=== PATIENT | female | born 1985 | race Caucasian/White ===

== ENCOUNTER 2025-01-30 13:52 | Emergency (ER) | payer MEDICAID, SELFPAY ==
[2025-01-30 14:12] VITALS: BP 115/77; PULSE 89; RESP 18; TEMP 36.7; O2SAT 98; BMI 34.6
--- NOTE | 2025-01-30 14:55 | CRLHL7_ITS ---
For Patients: As a result of the Century Cures Act, medical imaging exams and procedure reports are released immediately into your electronic medical record. You may view this report before your referring provider. If you have questions, please contact your health care provider. INDICATION: Bilateral flank and back pain TECHNIQUE: Axial images were obtained from the diaphragm to the pubic symphysis. Reformats were obtained in the coronal and sagittal plane. IV Contrast: 90 cc Isovue 370 Oral Contrast: None COMPARISON: None. FINDINGS: Lower chest: Unremarkable. Liver: Unremarkable. Normal in size and attenuation. No masses. Gallbladder and bile ducts: Contracted gallbladder. Normal diameter common duct. Spleen: Unremarkable. Normal in size without mass. Pancreas: Unremarkable. No mass or inflammation. Adrenal glands: Unremarkable. No nodules. Kidneys: Symmetric renal enhancement. No hydronephrosis. Vasculature: Unremarkable. GI tract: Mild asymmetric gastric wall thickening at the antrum (series 2, image 57; series 4, image 50). Possible subtle luminal wall irregularity (series 2, image 58; series 4, image 46). Small bowel decompressed. Normal appendix. Colon normal in caliber. Pelvis: Unremarkable. Bones: Unremarkable for age. IMPRESSION: 1. Mild asymmetric wall thickening of the antrum of the stomach, mild luminal wall irregularity questioned, suspected peptic ulcer disease. Differential includes gastritis. 2. Remainder of the abdomen and pelvis CT is within normal limits. Please note that all CT scans at this facility use dose modulation, iterative reconstruction, and/or weight-based dosing when appropriate to reduce radiation dose to as low as reasonably achievable. Dictated by Nick Kunz MD @ 01/30/2025 3:40:44 PM (Electronically Signed)
--- NOTE | 2025-01-30 14:57 | ED.GENADULT ---
HPI - General Adult General Chief complaint: Flank Pain Stated complaint: Kidney pain Time Seen by Provider: 01/30/25 14:09 History of Present Illness HPI narrative: Patient is a 39-year-old woman who presents with bilateral back and flank pain worse on the right. She has been having some intermittent pain in the past but her pain has been progressive over the last several days and now is causing lightheadedness and nausea. She has no dysuria. She does have chronic pelvic inflammatory disease as well as endometriosis. Patient is status post a tubal ligation 15 years ago after having 3 healthy children. She takes no home medications. She states that the pain is worse with activity when she lays flat. She has tried [id number] remedies with no improvement. Pain is 6/10 worsening to 8 with activity or lying flat. No recent trauma. Related Data Home Medications ?Medication ?Instructions ?Recorded ?Confirmed No Known Home Medications 01/30/25 01/30/25 Allergies Allergy/AdvReac Type Severity Reaction Status Date / Time No Known Drug Allergies Allergy Verified 01/30/25 15:20 Review of Systems Status of ROS: Reports: 10 or more systems reviewed and unremarkable except as noted in History and below [facility] Social History service: No Exam Narrative: Exam Narrative: EXAM GENERAL: Patient appears comfortable and well. EYES: No scleral icterus. LYMPH: No supraclavicular or cervical lymphadenopathy. SKIN: Visible skin seen during exam normal or with benign process only. EXT: No dependent lower extremity pedal edema. HEART: Regular rate and rhythm with no murmurs, rubs, or gallops. LUNGS: Clear to auscultation bilaterally with no crackles or wheezes. ABD: Soft, non tender, non distended. PSYCH: Good eye contact, speech is not pressured. Const: Vital Signs, click to edit/add: Vital Signs - 24 hr 01/30/25 14:12 Temperature 98.1 F Pulse Rate [Right Pulse Oximeter] 89 Respiratory Rate 18 Blood Pressure [Ri ght Upper Arm] 115/77 Pulse Oximetry 98 Oxygen Delivery Me thod Room Air Course Course ED Course: Patient seen examined. UA CBC basic metabolic panel CT abdomen pelvis pending. 30 mg of IA be Toradol given. Vital Signs Vital signs: Initial Vital Signs Temperature 98.1 F 03/14/25 14:12 Temperature Source Temporal Artery Scan 01/30/25 14:12 Pulse Rate 89 01/30/25 14:12 Pulse Rhythm Regular 01/30/25 14:12 Pulse Strength 3+ Normal 01/30/25 14:12 Respiratory Rate 18 01/30/25 14:12 Blood Pressure 115/77 01/30/25 14:12 Blood Pressure Mean 89 01/30/25 14:12 Blood Pressure Position Sitting 01/30/25 14:12 Pulse Oximetry 98 01/30/25 14:12 Oxygen Delivery Method Room Air 01/30/25 14:12 Vital Signs Temperature 98.1 F 01/30/25 14:12 Pulse Rate 89 01/30/25 14:12 Respiratory Rate 18 01/30/25 14:12 Blood Pressure 115/77 01/30/25 14:12 Pulse Oximetry 98 01/30/25 14:12 Oxygen Delivery Method Room Air 01/30/25 14:12 Temperature 98.1 F 01/30/25 14:12 Pulse Rate 89 01/30/25 14:12 Respiratory Rate 18 01/30/25 14:12 Blood Pressure 115/77 01/30/25 14:12 Pulse Oximetry 98 01/30/25 14:12 Oxygen Delivery Method Room Air 01/30/25 14:12 Medical Decision Making MDM Narrative Medical decision making narrative: Patient is a 39-year-old woman comes in today with crampy lower abdominal and back pain. Workup includes CT of the abdomen pelvis which showed questionable gastritis. She has an abnormal UA consistent with infection the remainder of her workup is unremarkable. This time will treated with plenty of rest plenty fluids Bactrim for 5 days primary care follow-up next week. Urine sent for culture. Lab Data Labs: Lab Results 01/30/25 01/30/25 Range/Units 14:55 15:13 WBC 7.37 (4.50-11.00) K/uL RBC 4.55 (4.00-5.20) m/uL Hgb 13.1 (12.0-16.0) gm/dL Hct 38.8 (33.0-51.0) % MCV 85 (80-100) fL MCH 29 (26-34) pg MCHC 34 (32-36) gm/dL RDW Coeff of Gail 12.2 (11.5-15.5) % Plt Count 310 (140-440) K/uL Neut % (Auto) 65.1 (42.0-72.0) % Lymph % (Auto) 24.4 (20-44) % [facility] % (Auto) 5.6 (0.0-11.0) % Eos % (Auto) 3.3 (0.0-7.0) % Baso % (Auto) 0.5 (0.0-3.0) % Neut # (Auto) 4.80 (1.7-7.0) K/uL Lymph # (Auto) 1.80 (0.90-2.90) K/uL [facility] # (Auto) 0.40 (0.00-0.90) K/UL Eos # (Auto) 0.24 (0.00-0.50) K/uL Baso # (Auto) 0.04 (0.00-0.30) K/uL Abs Immat Gran (auto) 0.08 (0.00-0.30) K/uL Imm/Tot Granulo (auto) 1.1 % Sodium 138 (135-149) mmol/L Potassium 4.1 (3.6-5.1) mmol/L Chloride 101 (96-114) mmol/L Carbon Dioxide 27 (20-32) mmol/L Anion Gap 10 (7-15) mEq/L BUN 13 (5-24) mg/dL Creatinine 0.8 (0.5-1.5) mg/dL Estimated Creat Clear 71.24 Estimated GFR 96 ml/min Glucose 103 (60-115) mg/dL Calcium 8.9 (8.4-10.6) mg/dL Total Bilirubin 0.4 (0.1-1.5) mg/dL AST 24 (12-35) U/L ALT 29 (4-35) U/L Alkaline Phosphatase 56 (40-150) U/L Total Protein 7.4 (6.0-8.3) g/dL Albumin 4.5 (3.3-5.0) g/dL Urine Color Yellow (Yellow) Urine Appearance Clear (Clear) Urine pH 7.0 (5.0-8.5) Ur Specific [place] 1.015 (1.000-1.030) Urine Protein Negative (Negative) Urine Glucose (UA) Negative (Negative) Urine Ketones Negative (Negative) Urine Blood Trace-intact A (Negative) Urine Nitrite Negative (Negative) Urine Bilirubin Negative (Negative) Urine Urobilinogen 0.2 (0.2-1.0) Ur Leukocyte Esterase 2+ A (Negative) Urine RBC 5-10 A (0-2) Urine WBC 10-25 A (0-5) Ur Squamous Epith Cells Moderate A (None-Few) Urine Bacteria Moderate A (None) Discharge Plan Discharge Clinical Impression: Urinary tract infection Patient Disposition: Home, Self-Care Condition: Stable Instructions: Urinary Tract Infection in Women (ED) Additional Instructions: Bactrim as directed Rest Fluids Follow-up as discussed next week with your doctor. Activity Level: No Restrictions Discharge Diet: Regular Prescriptions: No Action No Known Home Medications Follow Up/Referrals: Diana Rodgers DO [Primary Care Provider] - Stand Alone Forms: [employer] Info Instructions
[2025-01-30 15:07] LABS: Appearance Urine Clear (Clear); Bilirubin Urine Negative (Negative); Blood Urine Trace-intact (Negative); Color Urine Yellow (Yellow); Glucose Urine Negative (Negative); Ketones Urine Negative (Negative); Leukocyte Esterase Urine 2+ (Negative); Nitrite Urine Negative (Negative); Protein Urine Negative (Negative); Specific Gravity Urine 1.015 (1.000-1.030); Urobilinogen Urine 0.2 (0.2-1.0)
[2025-01-30 15:16] LABS: Bacteria Urine Moderate; Squamous Epithelial Cell Urine Moderate (None-Few)
[2025-01-30 15:25] LABS: Basophils Absolute Auto 0.04 K/uL (0.00-0.30); Basophils Percent Auto 0.5 % (0.0-3.0); Eosinophils Absolute Auto 0.24 K/uL (0.00-0.50); Eosinophils Percent Auto 3.3 % (0.0-7.0); Hematocrit 38.8 % (33.0-51.0); Hemoglobin* 13.1 gm/dL (12.0-16.0); Immature Granulocytes Abs Auto 0.08 K/uL (0.00-0.30); Immature Granulocytes Pct Auto 1.1 %; Lymphocytes Percent Auto 24.4 % (20-44); Mean Corpuscular HGB Conc 34 gm/dL (32-36); Mean Corpuscular Hemoglobin 29 pg (26-34); Mean Corpuscular Volume 85 fL (80-100); Monocytes Percent Auto 5.6 % (0.0-11.0); Neutrophils Percent Auto 65.1 % (42.0-72.0); Platelet Count* 310 K/uL (140-440); RDW Coefficient of Variation % 12.2 % (11.5-15.5); Red Blood Count 4.55 m/uL (4.00-5.20); White Blood Count* 7.37 K/uL (4.50-11.00)
[2025-01-30 15:32] LABS: Slide Review Reflex No
[2025-01-30 15:40] LABS: Albumin* 4.5 g/dL (3.3-5.0); Chloride* 101 mmol/L (96-114); Sodium* 138 mmol/L (135-149)
[2025-01-30 15:41] LABS: Potassium* 4.1 mmol/L (3.6-5.1)
[2025-01-30 15:43] LABS: Alkaline Phosphatase* 56 U/L (40-150); Anion Gap 10 mEq/L (7-15); Aspartate Amino Transferase* 24 U/L (12-35); Bilirubin Total* 0.4 mg/dL (0.1-1.5); Blood Urea Nitrogen* 13 mg/dL (5-24); Carbon Dioxide* 27 mmol/L (20-32); Creatinine* 0.8 mg/dL (0.5-1.5); Est. Creatinine Clearance* 71.24; Estimated Glomerular Filt Rate 96 ml/min; Total Protein* 7.4 g/dL (6.0-8.3)
[2025-01-30 15:44] LABS: Alanine Aminotransferase* 29 U/L (4-35); Calcium* 8.9 mg/dL (8.4-10.6); Glucose* 103 mg/dL (60-115)
== END 2025-01-30 16:05 | disposition home or self-care (01) ==
PROVIDERS: Emergency Provider Internal Medicine; PCP Family Medicine
DX: N39.0 Urinary tract infection, site not specified (principal)
CPT/HCPCS: 36415; 74177; 80053; 81001; 81003; 85025; 87086; 96374; 99283; 99284; 99285; Q9967

== ENCOUNTER 2025-06-09 10:03 | Emergency (ER) | payer BC, SELFPAY ==
--- OUTSIDE RECORDS SUMMARY | 2025-06-09 10:08 | XMS_ITS | Clinical Summary ---
Author Organization [facility] Address [address] [place] [address] Care Team Providers Care Mortgage Protection Specialist Name Role Phone Diana Rodgers DO Primary Care Provider [phone] Allergies Active Allergy Reactions Criticality Noted Date Comments Penicillin Hives 02/04/2025 Medications cholecalciferol 50,000 unit capsuleIndicati ons:Vitamin D deficiency Take 1 Capsule (50,000 units) by mouth once weekly. 6 Capsule 02/06/2025 Active esomeprazole delayed release capsule 20 mg Take 20 mg by mouth once daily before a meal. 02/17/2025 Active DULoxetine 30 mg Delayed-release capsuleIndicati ons:Chronic pain syndrome Take 1 Capsule (30 mg) by mouth once daily. 30 Capsule 2 04/06/2025 Active Active Problems Problem Noted Date Diagnosed Date Human papillomavirus (HPV) t ype 18 DNA detected in cervical specimen 03/04/2025 Overview (03/04/2025): 01/2025 ASCUS/HPV 18 +, HPV 16 negative, other HPV negative Plan: colposcopy Encounters Date Type Department Care Team Description 06/09/2025 Nurse Triage [facility] [address] [facility] [address] Diana Rodgers, Abdominal Pain 06/04/2025 9:54 AM CDT - 06/04/2025 11:59 PM CDT Hospital Encounter [address] [place] [address] Radha Sultana MD Wegner, Angela V, BLAST FURNACE HELPER 06/04/2025 Travel 06/01/2025 8:30 AM CDT Procedure Only [facility] [address] [place] [address] Cameron Camp L Ac Acupuncture 06/01/2025 Travel 05/18/2025 10:54 AM CDT - 05/18/2025 11:59 PM CDT Hospital Encounter [address] [address] Radha Sultana MD Noble, Isaac J, PT 05/18/2025 Travel 05/12/2025 11:21 AM CDT - 05/12/2025 11:59 PM CDT Hospital Encounter [address] [address] Radha Sultana MD Noble, Isaac J, PT Chronic pain syndrome; Polyneuropathy; Acute midline low back pain with left-sided sciatica; 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; Fibromyalgia 05/12/2025 Travel 05/06/2025 10:30 AM CDT Procedure Only [facility] [address] [place] [address] [place] L Ac Acupuncture 05/06/2025 Travel 04/21/2025 11:00 AM CDT Procedure Only [facility] [address] [place] [address] Cameron [place] L Ac Acupuncture 04/20/2025 11:30 AM CDT Telemedicine [facility] [address] [place] [address] Radha Sultana MD Medication Management (Joint pain and muscle pain - GI upset/3 day Migraine ) 04/20/2025 Travel 04/15/2025 Telephone [facility] [address] [place] [address] Radha Sultana MD Medication Management 04/06/2025 4:15 PM CDT Ancillary Procedure [facility] [place] [address] 04/06/2025 4:00 PM CDT Ancillary Procedure [facility] [place] [address] 04/06/2025 3:05 PM CDT Office Visit [address] [address] Radha Sultana MD Follow Up 04/06/2025 Travel 03/30/2025 10:30 AM CDT Ancillary Procedure [address] [place] [address] 03/30/2025 9:50 AM CDT Office Visit [address] [address] Radha Sultana MD Foot Pain/problem (Bilateral leg and foot pain - skin feels tight/full/Worsenin g with sitting. /Feet feel heavy and full. /Present for 2 weeks. ); Elbow Pain/problem (Right elbow pain ) 03/30/2025 Travel 03/22/[address] [address] Diana Rodgers DO Questions (Procedure Concerns) 03/19/2025 10:25 AM CDT Procedure Only [address] [address] Diana Rodgers DO Procedure (Colposcopy) 03/18/2025 Travel 03/10/2025 Travel from Last 3 Months Family History Medical History Relation Name Comments Unknown Father Hypertension Mother Relation Name Status Comments Father Mother Social History Tobacco Use Types Packs/Day Years Used Date Smoking Tobacco: Former Cigarettes Smokeless Tobacco: Never Tobacco Cessation:Counseling Given: Not Answered Alcohol Use Standard Drinks/Week Comments Yes 0 (1 standard drink = 0.6 oz pur e alcohol) once monthly PHQ-2 Answer Date Recorded PHQ-2 TOTAL SCORE 0 02/04/2025 Social Connections Answer Date Recorded Do you often feel lonely or isolated from those around you? 0 02/04/2025 Financial Resource Strain Answer Date R ecorded Difficulty of Paying Living Expenses 3 02/04/2025 Difficulty of Paying Living Expenses Not on file 02/04/2025 Food Insecurity Answer Date Recorded Do you worry your food will run out before you are able to buy more? 1 02/04/2025 Transportation Needs Answer Date Record ed Does lack of transportation keep you from medica l appointments? 1 02/04/2025 Does lack of transportation keep you from work, meetings or getting things that you need? 1 02/04/2025 Housing Stability Answer Date Recorded What is your housing situation today? 1 02/04/2025 Utilities Answer Date Recorded Do you have trouble paying f or utilities (for example, heat, electricity, water, phone)? 1 02/04/2025 Comments No Sex and Gender Information Value Date Recorded Sex Assigned at Not on file Legal Sex Female 9:29 AM CDT Gender Identity Not on file Sexual Orientation Not on file Obstetrics History Para Term AB IAB SAB Ectopic Multiple Livin g Live Births 9 6 6 3 Date Outcome GA Total Labor Labor/2nd/3rd Weight Sex Type Anes PTL Zoya A1 A5 Name Clin SAB SAB SAB SAB SAB SAB Last Filed Vital Signs Vital Sign Reading Time Taken Comments Blood Pressure 121/74 04/06/2025 3:06 PM CDT Pulse 73 04/06/2025 3:06 PM CDT Temperature - - Respiratory Rate - - Oxygen Saturation 99% 04/06/2025 3:06 PM CDT Inhaled Oxygen Concentration - - Weight 86.8 kg (191 lb 6.4 oz) 03/19/2025 10:49 AM CDT Height 160.2 cm (5' 3.07) 02/13/2025 1:54 PM CD T Body Mass Index 33.83 02/13/2025 1:54 PM CDT Plan of Treatment Upcoming Encounters Date Type Department Care Team (Late st Contact Info) Description 06/10/2025 10:15 AM CDT Appointment [facility] [address] [place] [address] Mack Juarez, PT [address] [place] [address] 06/11/2025 10:00 AM CDT Procedure Only [facility] [address] [facility], [place] [address] [place] [address] 06/18/2025 11:30 AM CDT Procedure Only [facility] [address] [facility], [place] [address] [place], Robin Ac [address] [facility] [address] 06/25/2025 11:00 AM CDT Procedure Only [facility] [address] [place] [facility] [place] [address] [place] L Ac [address] [facility] [address] 07/09/2025 11:30 AM CDT Procedure Only [facility] [address] [place] [facility] [place] [address] Cameron Camp L Ac [address] [place] [address] 07/16/2025 11:30 AM CDT Procedure Only [facility] [address] [place] [facility] [address] Cameron Camp L Ac [address] [place] [address] 07/23/2025 10:30 AM CDT Procedure Only [facility] [address] [place] [address] Cameron Camp L Ac [address] [place] [address] 07/30/2025 11:30 AM CDT Procedure Only [facility] [address] [place] [address] [place] L Ac [address] [place] [address] 08/06/2025 11:30 AM CDT Procedure Only [facility] [address] [place] [address] [place] [facility] [address] 08/13/2025 11:30 AM CDT Procedure Only [facility] [address] [place] [facility] [place] [address] Cameron Camp L Ac [address] [place] [address] 08/20/2025 10:00 AM CDT Telemedicine [facility] [address] [place] [phone] Shell Bingham, VOTING MACHINE MECHANIC [address] [place], [place] [phone] 09/22/2025 10:40 AM 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 OPERATOR Telemedicine [facility] [address] [place] [phone] Yony Ramírez MD [address] [place] [address] Health Maintenance Due Date Last Done Comments Tetanus booster 1996 HIV for age 15-65 2000 Hepatitis C screening for age 18-79 2003 Hepatitis B series for 19+ (1 of 3 - 19+ 3-dose series) 2004 COVID-19 vaccine series ( season) 2024 Influenza Vaccine (#1) 2025 Depression screening for age 12+ 02/04/2026 02/04/2025 BMI (ht and wt on same day) for age 18+ 02/13/2026 02/13/2025, 02/04/2025 Pap test for age 21-65 03/19/2026 (Verified in Care Everywhere or Patient Record), 02/13/2025, 02/13/2025 Pneumococcal series for age 6-49 Aged Out No longer eligible based on patient's age to complete this topic Procedures Procedure Name Priority Date/Time Associated Diagnosis Comments ACUPUNCTURE PLAN OF CARE Routine 06/01/2025 8:29 AM CDT Chronic pain syndrome Polyneuropathy Acute midline low back pain with left-sided sciatica 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 Fibromyalgia ACUPUNCTURE PLAN OF CARE Routine 05/06/2025 10:29 AM CDT Chronic pain syndrome Polyneuropathy Acute midline low back pain with left-sided sciatica 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 Fibromyalgia XR SPINE THORACIC 3 VIEWS Routine 04/06/2025 4:13 PM CDT Polyneuropathy XR SPINE CERVICAL 3 VIEWS Routine 04/06/2025 4:12 PM CDT Polyneuropathy XR SPINE LUMBAR 2 VIEWS Routine 03/30/2025 11:11 AM CDT Polyneuropathy Acute midline low back pain with left-sided sciatica VITAMIN B12 Routine 03/30/2025 10:39 AM CDT Polyneuropathy C-REACTIVE PROTEIN Routine 03/30/2025 10 :39 AM CDT Polyneuropathy SEDIMENTATION RATE Routine 03/30/2025 10 :39 AM CDT Polyneuropathy VITAMIN D 25 (DEFICIENCY) Routine 03/30/2025 10:39 AM CDT Polyneuropathy Vitamin D deficiency CBC WITH AUTO DIFFERENTIAL Routine 03/30/2025 10:39 AM CDT Polyneuropathy PROTEIN/CREAT RATIO,URINE Routine 03/30/2025 10:38 AM CDT Polyneuropathy PROTEIN ELP SERUM W REFLEX Routine 03/30/2025 10:38 AM CDT Polyneuropathy PATH TISSUE EXAM Routine 03/19/2025 11:2 0 AM CDT Atypical squamous cell changes of undetermined significance (ASCUS) on cervical cytology with positive high risk human papilloma virus (HPV) Human papillomavirus (HPV) type 18 DNA detected in cervical specimen URINE POCT Routine 03/19/2025 10:57 AM CDT Pre-procedure lab exam HPV HIGH RISK Routine 02/13/2025 2:43 PM CDT Cervical cancer screening from Last 3 Months or Most Recently Relevant to Health Maintenance Results * XR SPINE THORACIC 3 VIEWS (04/06/2025 4:13 PM CDT) Anatomical Region Laterality Modality Spine, THORACIC SPINE Computed R adiography 04/07/2025 12:1 0 PM CDT Impressions 04/07/2025 12:10 PM CDT Negative thoracic spine. Dictated by Franklyn Holliday MD @ 04/07/2025 12:10:08 PM (Electronically Signed) Narrative 04/07/2025 12:10 PM CDT For Patients: As a result of the Cures Act, medical imaging exams and procedure reports are released immediately into your electronic medical record. You may view this report before your referring provider. If you have questions, please contact your health care provider. INDICATION: Polyneuropathy TECHNIQUE: 3-view thoracic spine. COMPARISON: none FINDINGS: The thoracic vertebrae are anatomically aligned. The disc spaces are of normal height. There is no evidence of a fracture or intrinsic bone lesion. The posterior ribs and paraspinal soft tissues appear normal. Procedure Note Franklyn Holliday MD - 04/07/2025 For Patients: As a result of the Cures Act, medical imagingexams and procedure reports are released immediately into your electronicmedical record. You may view this report before your referring provider.If you have questions, please contact your health care provider. INDICATION: Polyneuropathy TECHNIQUE: 3-view thoracic spine. COMPARISON: none FINDINGS: The thoracic vertebrae are anatomically aligned. The disc spaces are ofnormal height. There is no evidence of a fracture or intrinsic bonelesion. The posterior ribs and paraspinal soft tissues appear normal. IMPRESSION: Negative thoracic spine. Dictated by Franklyn Holliday MD @ 04/07/2025 12:10:08 PM (Electronically Signed) us Radha Sultana MD GENERAL IMAGING Fi nal Result * XR SPINE CERVICAL 3 VIEWS (04/06/2025 4:12 PM CDT) Anatomical Region Laterality Modality CERVICAL SPINE Computed Radiogr aphy 04/06/2025 7:0 4 PM CDT Impressions 04/06/2025 7:04 PM CDT 1. No radiographic evidence of acute osseous injury. Dictated by John Freitas MD @ 04/06/2025 7:04:27 PM (Electronically Signed) Narrative 04/06/2025 7:04 PM CDT For Patients: As a result of the s Act, medical imaging exams and procedure reports are released immediately into your electronic medical record. You may view this report before your referring provider. If you have questions, please contact your health care provider. INDICATION: Neck pain. FINDINGS: Three views of the cervical spine are submitted. No comparison. The overall stature and alignment of the cervical spine is within normal limits. The prevertebral soft tissues, dens and lateral masses are within normal limits. Intervertebral disc space height appears within normal limits. Procedure Note Pankaj Freitas, - 04/06/2025 For Patients: As a result of the s Act, medical imagingexams and procedure reports are released immediately into your electronicmedical record. You may view this report before your referring provider.If you have questions, please contact your health care provider. INDICATION: Neck pain. FINDINGS: Three views of the cervical spine are submitted. No comparison. The overall stature and alignment of the cervical spine is within normallimits. The prevertebral soft tissues, dens and lateral masses are withinnormal limits. Intervertebral disc space height appears within normallimits. IMPRESSION: 1. No radiographic evidence of acute osseous injury. Dictated by John Freitas MD @ 04/06/2025 7:04:27 PM (Electronically Signed) Radha Sultana MD GENERAL IMAGING Fi nal Result * XR SPINE LUMBAR 2 VIEWS (03/30/2025 11:11 AM CDT) Anatomical Region Laterality Modality LUMBAR SPINE Computed Radiogr aphy 03/30/2025 11:3 7 AM CDT Impressions 03/30/2025 11:37 AM CDT Minimal discogenic spurring at several levels. Dictated by Franklyn Holliday MD @ 03/30/2025 11:37:58 AM (Electronically Signed) Narrative 03/30/2025 11:37 AM CDT For Patients: As a result of the Cures Act, medical imaging exams and procedure reports are released immediately into your electronic medical record. You may view this report before your referring provider. If you have questions, please contact your health care provider. INDICATION: Acute midline low back pain with left-sided sciatica TECHNIQUE: 2-view lumbar spine. COMPARISON: none FINDINGS: No fracture. Minimal discogenic spurring L3-4, L2-3 and L1-2. Normal facet joints. No spondylolisthesis. Sacroiliac joints normal. Normal soft tissues. Procedure Note Franklyn Holliday MD - 03/30/2025 For Patients: As a result of the Cures Act, medical imagingexams and procedure reports are released immediately into your electronicmedical record. You may view this report before your referring provider.If you have questions, please contact your health care provider. INDICATION: Acute midline low back pain with left-sided sciatica TECHNIQUE: 2-view lumbar spine. COMPARISON: none FINDINGS: No fracture. Minimal discogenic spurring L3-4, L2-3 and L1-2. Normal facetjoints. No spondylolisthesis. Sacroiliac joints normal. Normal softtissues. IMPRESSION: Minimal discogenic spurring at several levels. Dictated by Franklyn Holliday MD @ 03/30/2025 11:37:58 AM (Electronically Signed) Radha Sultana MD GENERAL IMAGING nal Result * SEDIMENTATION RATE (03/30/2025 10:39 AM CDT) SED RATE BY MODIFIED FELICIA 11 < OR = 20 mm/h [facility] Blood BLOOD SPECIMEN / Unknown 03/30/2025 10:39 AM CDT 03/30/2025 10:41 AM CDT Radha Sultana MD HEMATOLOGY nal Result [employer] [facility] [address] [place] [address], [facility] [address] [place] [address] * (ABNORMAL) VITAMIN D 25 (DEFICIENCY) (03/30/2025 10:39 AM CDT) VITAMIN D,25-OH,TOTAL,IA 29(L) 30 - 100 ng/mL [facility] Comment: Vitamin D Status 25-OH Vitamin D: Deficiency: <20 ng/mL Insufficiency: 20 - 29 ng/mL Optimal: > or = 30 ng/mL For 25-OH Vitamin D testing on patients on D2-supplementation and patients for whom quantitation of D2 and D3 fractions is required, the [facility](TM) 25-OH VIT D, (D2,D3), LC/MS/MS is recommended: order code 67839 (patients >2yrs). See Note 1 Note 1 For additional information, please refer to http://education.[employer]/faq/BIV860 (This link is being provided for informational/ educational purposes only.) Blood BLOOD SPECIMEN / Unknown 03/30/2025 10:39 AM CDT 03/30/2025 10:41 AM CDT Radha Sultana MD SEND OUTS Fi nal Result Performing Organization Address [facility] Co de Phone Number [employer] [id number] [place] [address], [place] [phone] [facility] [address] [place] [address] * C-REACTIVE PROTEIN (03/30/2025 10:39 AM CDT) [facility] C-REACTIVE PROTEIN <3.0 <8.0 mg/L [facility] Blood BLOOD SPECIMEN / Unknown 03/30/2025 10:39 AM CDT 03/30/2025 10:41 AM CDT Radha Sultana MD CHEMISTRY Fi nal Result Performing Organization Address [facility] de Phone Number [employer] [address] [address], [place] [phone] [facility] [address] [place] [phone] * CBC AND DIFFERENTIAL (03/30/2025 10:39 AM CDT) [facility] WHITE BLOOD CELL COUNT 4.5 3.8 - 10.8 Thousand/u L [facility] RED BLOOD CELL COUNT 4.74 3.80 - 5.10 Million/uL [facility] HEMOGLOBIN 13.9 11.7 - 15.5 g/dL [facility] HEMATOCRIT 42.3 35.0 - 45.0 % [facility] MCV 89.2 80.0 - 100.0 fL [facility] MCH 29.3 27.0 - 33.0 pg [facility] MCHC 32.9 32.0 - 36.0 g/dL [facility] Comment: For adults, a slight decrease in the calculated MCHC value (in the range of 30 to 32 g/dL) is most likely not clinically significant; however, it should be interpreted with caution in correlation with other red cell parameters and the patient's clinical condition. RDW 13.0 11.0 - 15.0 % [facility] PLATELET COUNT 326 140 - 400 Thousand/u L [facility] MPV 10.2 7.5 - 12.5 fL [facility] ABSOLUTE NEUTROPHILS 2,444 1,500 - 7,800 cells/uL [facility] ABSOLUTE LYMPHOCYTES 1,593 850 - 3,900 cells/uL [facility] ABSOLUTE MONOCYTES 252 200 - 950 cells/uL [facility] ABSOLUTE EOSINOPHILS 162 15 - 500 cells/uL [facility] ABSOLUTE BASOPHILS 50 0 - 200 cells/uL [facility] NEUTROPHILS 54.3 % [facility] LYMPHOCYTES 35.4 % [facility] MONOCYTES 5.6 % [facility] EOSINOPHILS 3.6 % [facility] BASOPHILS 1.1 % [facility] Blood BLOOD SPECIMEN / Unknown 03/30/2025 10:39 AM CDT 03/30/2025 10:41 AM CDT Radha Sultana MD HEMATOLOGY Fi nal Result [employer] [facility] [address] [place] [address], [facility] [address] [place] [address] * VITAMIN B12 (03/30/2025 10:39 AM CDT) VITAMIN B12 497 200 - 1,100 pg/mL [facility] Blood BLOOD SPECIMEN / Unknown 03/30/2025 10:39 AM CDT 03/30/2025 10:41 AM CDT Radha Sultana MD CHEMISTRY Fi nal Result [facility] [employer] [facility] [address] [place] [address], [facility] [address] [place] [address] * PROTEIN ELP SERUM W REFLEX (03/30/2025 10:38 AM CDT) ELP,ALBUMIN 4.50 3.31 - 5.31 g/dL 03/31/2025 11:22 AM CDT [facility] ELP,ALPHA 1 0.26 0.19 - 0.42 g/dL 03/31/2025 11:22 AM CDT [facility] ELP,ALPHA 2 0.75 0.44 - 1.03 g/dL 03/31/2025 11:22 AM CDT [facility] ELP,GAMMA 1.10 0.59 - 1.46 g/dL 03/31/2025 11:22 AM CDT [facility] ELP,BETA 0.89 0.52 - 1.05 g/dL 03/31/2025 11:22 AM CDT [facility] ELP INTERP,SERUM Normal electrophoretic pattern. No monoclonal protein detected. Interpreted and electronically signed by: July Etienne MD 03/31/2025 11:22 AM CDT [facility] PROTEIN,TOTA L 7.5 6.0 - 8.0 g/dL 03/31/2025 11:22 AM CDT [facility] Blood BLOOD SPECIMEN / Unknown [facility] / Unknown 03/30/2025 10:38 AM CDT 03/30/2025 10:38 AM CDT us Radha Sultana MD CHEMISTRY Fi nal Result [facility] [address] [place] [address], [place] * PROTEIN/CREAT RATIO,URINE (03/30/2025 10:38 AM CDT) PROTEIN QUANT,RAND URINE <6 1 - 14 mg/dL 03/30/2025 3:59 PM CDT [facility] CREAT,RANDOM URINE 41.1 28.0 - 217.0 mg/dL 03/30/2025 3:59 PM CDT [facility] PROT/CREAT RATIO,UR 03/30/2025 3:59 PM CDT [facility] Comment:Urine Protein below measurement range, unable to calculate. Urine URINE SPECIMEN / Unknown Non-Blood / Unknown 03/30/2025 10:38 AM CDT 03/30/2025 10:38 AM CDT us Radha Sultana MD URINE Fi nal Result [facility] [address] [place] [address], * PATH TISSUE EXAM (03/19/2025 11:20 AM CDT) Case Report Pathology Report Case: [id number] Authorizing Provider: Diana Rodgers DO Collected: 03/19/2025 1120 Ordering Location: [facility] Received: 03/19/2025 1607 Clinic Pathologist: Jacquelyn Pugh MD Specimens: A) - Cervix, 9 o'clock B) - Cervix, 3 o'clock C) - Cervix, ECC 03/25/2025 10:57 AM CDT [facility] Final Diagnosis A) CERVIX, 9:00, BIOPSY: 1. Low grade squamous intraepithelial lesion (SAMANTHA 1) with superimposed reactive changes a. Sampling: Ectocervix and endocervix b. Transformation zone: Present 2. Negative for glandular neoplasia, high grade squamous intraepithelial lesion, and malignancy B) CERVIX, 3:00, BIOPSY: 1. Low grade squamous intraepithelial lesion (SAMANTHA 1) a. Sampling: Ectocervix and endocervix b. Transformation zone: Present 2. Negative for glandular neoplasia, high grade squamous intraepithelial lesion, and malignancy C) ENDOCERVIX, CURETTAGE: 1. Fragments of benign endocervical and ectocervical tissues 2. Negative for glandular neoplasia, squamous intraepithelial lesion, and malignancy 03/25/2025 10:57 AM CDT [facility] at 1057 CDT Comment The patient's prior Pap test ([id number]; 02/13/25) was diagnosed as atypical squamous cells of undetermined significance (ASCUS). Concurrent HR-HPV testing was positive for HR-HPV type 18. The atypical cells seen on the prior cervical Pap test are explained by the current biopsies and ECC. 03/25/2025 10:57 AM CDT [facility] Clinical Information 39 year old presenting for colposcopy due to ASCUS pap, HR-HPV positive. Colposcopy demonstrated the following: The colposcopy was satisfactory. Significant Findings Include: 1. Lesion #1 at 9 o'clock: thin acetowhite changes at SCJ 2. Lesion #2 at 3 o'clock: thin acetowhite changes at SCJ Entire squamocolumnar junction visualized: yes Biopsies and ECC performed. 03/25/2025 10:57 AM CDT [facility] Gross Description A) Received in formalin, labeled with the patient's name and A, is a single nance mucosal fragment measuring 0.4 cm. The specimen is submitted in toto in one cassette. B) Received in formalin, labeled with the patient's name and B, is a single nance mucosal fragment measuring 0.3 cm. The specimen is submitted in toto in one cassette. C) Received in formalin, labeled with the patient's name and ECC, is a 0.6 x 0.5 x 0.1 cm aggregate of blood tinged mucous. The specimen is entirely submitted in 1 cassette. EVM 03/20/2025 03/25/2025 10:57 AM CDT [facility] Microscopic Description The final diagnosis is based on microscopic examination of appropriate sections of all specimens. Deeper sections are examined on parts A and B. A p16 immunostain was performed on part A (utilizing destained section A1-1) to assist in evaluation. The p16 immunostain is negative for diffuse expression. 03/25/2025 10:57 AM CDT [facility] EN[facility]AL LAB[facility] Additional Information Interpreted at [facility] - [address] [place] [id number] Immunohistochemist ry controls were reviewed and approved as appropriate by the pathologist during this examination. 03/25/2025 10:57 AM CDT [facility] ENTRAL LABORATORY Other SPECIMEN FROM UTERINE CERVIX / Unknown Non-Blood / Unknown 03/19/2025 11:20 AM CDT 03/19/2025 4:07 PM CDT Specimen (specimen) SPECIMEN FROM UTERINE CERVIX / Unknown 03/19/2025 11:20 AM CDT 03/19/2025 4:07 PM CDT Specimen (specimen) SPECIMEN FROM UTERINE CERVIX / Unknown 03/19/2025 11:20 AM CDT 03/19/2025 4:07 PM CDT Diana Rodgers DO PATHOLOGY/CYTOLOGY Final R esult Performing Organization Address City/[facility]/ZIP Co de Phone Number [facility] [address] [place] [address], * POCT Urine (03/19/2025 10:57 AM CDT) POC HCG URINE NEGATIVE NEGATIVE [facility] Urine URINE SPECIMEN / Unknown 03/19/2025 10:57 AM CDT 03/19/2025 10:58 AM CDT Diana Rodgers DO URINE Final Resu lt [facility] [address] [place] [address], [facility] [address] [place] [address] * (ABNORMAL) HPV HIGH RISK (02/13/2025 2:43 PM CDT) TYPE 16 Negative Negative 02/19/2025 11:04 AM CDT [facility] TYPE 18 Positive(A) Negative 02/19/2025 11:04 AM CDT [facility] OTHER HIGH RISK TYPES Negative Negative 02/19/2025 11:04 AM CDT [facility] Other (Cervical) Non-Blood / Unknown 02/13/2025 2:43 PM CDT 02/16/2025 2:22 PM CDT Narrative [facility] - 02/19/2025 11:04 AM CDT Specimen is positive for HPV type 18 DNA. HPV types 16, 31, 33, 35, 39, 45, 51, 52, 56, 58, 59, 66 and 68 DNA were undetectable or below the pre-set threshold. Methodology: Karly Francisco Javier 4800 HPV Test Diana Rodgers DO MICROBIOLOGY Final Resu lt [facility] [address] [place] [id number], from Last 3 Months or Most Recently Relevant to Health Maintenance Insurance [facility] Care Teams Mortgage Protection Specialist Relationship Specialty Start Date End Date Diana Rodgers DO [address] [place] [id number] PCP - General Family Practice 02/04/25
[2025-06-09 10:12] VITALS: BP 129/86; PULSE 90; RESP 18; TEMP 37.4; O2SAT 96
--- NOTE | 2025-06-09 10:34 | ED.GENADULT ---
HPI - General Adult General Time Seen by Provider: 10:35 Date Seen: 06/09/25 Chief complaint: Urogenital Problems, Female Stated complaint: cramping, Nasua and vomiting Time Seen by Provider: 06/09/25 10:34 Source: patient and RN notes reviewed Mode of arrival: ambulatory Limitations: no limitations History of Present Illness HPI narrative: This 39-year-old female is coming in with lower abdominal cramping, diarrhea this morning. She feels earlier last week she had some low-grade temperatures. She started with some mild lower pelvic cramping on and Sunday, this is worsened. It kept her up last night. She has nausea today with vomiting this morning. She states she had significant diarrhea this a.m.. She has a history of PCOS but her menstrual cycles have been regular the last few years. Her last menstrual period was May 25. She did start having some pinkish mucousy vaginal discharge this weekend. She did have bacterial vaginitis a few months ago. She also has underlying HPV. She has had a history of a tubal ligation in her has had a vasectomy as well. When walking back here, she felt some substernal chest discomfort but has had no chest symptoms prior to this. No respiratory symptoms. She does have fibromyalgia and thought maybe her symptoms were just flaring this weekend. She has a sense of vibrating throughout her whole body and it is not going away. Related Data Home Medications ?Medication ?Instructions ?Recorded ?Confirmed No Known Home Medications 01/30/25 01/30/25 Allergies Allergy/AdvReac Type Severity Reaction Status Date / Time amoxicillin Allergy Severe Hives Verified 06/09/25 10:12 Penicillins Allergy Severe Palpitation Verified 06/09/25 10:12 s Review of Systems Status of ROS: Reports: 6 or more systems reviewed and unremarkable except as noted in History and below [facility] Medical History (Updated 06/09/25 @ 13:46 by Ellie Fitzgerald MD) Fibromyalgia ?M79.7 - Fibromyalgia (ICD-10) Surgical History (Updated 06/09/25 @ 10:53 by Ellie Fitzgerald MD) Status post tubal ligation ?Z98.51 - Tubal ligation status (ICD-10) Social History Smoking Status: Current some day smoker Do you use any of these nicotine containing products: Vaping Products How often do you have a drink containing alcohol: never How often do you have six or more drinks on one occasion: Never AUDIT-C Alcohol total score: 0 Non-prescribed substance use: denies use service: No Exam Const: Vital Signs, click to edit/add: Vital Signs - 24 hr 06/09/25 10:12 06/09/25 10:42 06/09/25 13:29 Temperature 99.3 F Pulse Rate [Pulse Oximeter] 90 70 Respiratory Rate 18 Blood Pressure [Ri ght Upper Arm] 129/86 105/65 Pulse Oximetry 96 97 97 Oxygen Delivery Me thod Room Air 06/09/25 13:32 Temperature 98.8 F Pulse Rate [Pulse Oximeter] Respiratory Rate 18 Blood Pressure [Ri ght Upper Arm] Pulse Oximetry Oxygen Delivery Me thod This 39-year-old female is alert, interactive, no apparent distress. She is very well kept him pleasant. Sclera clear, symmetrical facial function. Lungs are clear, good air entry, no wheezing or crackles, no tachypnea, no accessory muscle use. CV regular rate and rhythm, no murmur, normal S1-S2, no S3-S4. Abdomen is soft, normal bowel sounds, no rebound or guarding, no organomegaly noted. Pelvic exam deferred at this point. Patient was ambulatory into the ED of her own Documenting provider has reviewed patient's vital signs: yes Course Course ED Course: This 39-year-old female does have a multitude of presenting symptoms. Do need to consider bacterial vaginosis and will get a vaginitis panel, she can self collect. Will do imaging, give full complement of labs. Will give her some IV fluids, IV Zofran IV Toradol. Will have her on pulse oximetry, get a troponin and EKG. We did discuss referred pain to the lower chest where she was feeling this verses ischemic disease. Doubt that she is having ischemic disease but certainly women can present atypically. She is currently hemodynamically stable and will be followed here. As far as the diarrhea, cramping abdominal symptoms, could be gastroenteritis, colitis, labs and imaging will certainly help us evaluate this further. Patient understands that we may need to do pelvic ultrasonography if clinically indicated during this evaluation. Will start was CT 1st however. Reevaluation(s) Time of Reevaluation #1: 12:12 Reevaluation #1: Patient was just up to go to the bathroom. Going to review her CT findings with her and let her know that we are doing a pelvic ultrasound. She is not collected vaginitis swab yet. Will have nursing staff get the kit and either patient or myself will get this done. Did review the potential colitis on the CT, for most patients this is self-limited and will resolve on its own. She is going to need to watch for worsening pain, fevers, bloody diarrhea. We will be obtaining pelvic ultrasound to look at the left ovary further. Time of Reevaluation #2: 13:42 Reevaluation #2: Did review with the ultrasound findings. [facility], her 1st follow-up appointment with someone is out into August. She states that was the 1st available. We did discuss seeing someone here, she would like to do that. We reviewed that she may end up needing an endometrial biopsy or potentially even hysteroscopy given the findings on the ultrasound. Ultimately defer to the specialist whom will be able to tell her what will need to happen, but I do know that she absolutely needs to follow up with OB Gyne. Patient is requesting Toradol as this did help her, we did review there is an oral form. She would like it from [facility]. Did provide this with 1 tablet (10mg) every 4-6 hours as needed not to exceed 4 per day, 20 prescribed. Vital Signs Vital signs: Initial Vital Signs Temperature 99.3 F 06/09/25 10:12 Temperature Source Temporal Artery Scan 06/09/25 10:12 Pulse Rate 90 06/09/25 10:12 Respiratory Rate 18 06/09/25 10:12 Blood Pressure 129/86 06/09/25 10:12 Blood Pressure Mean 100 06/09/25 10:12 Blood Pressure Position Sitting 06/09/25 10:12 Pulse Oximetry 96 06/09/25 10:12 Oxygen Delivery Method Room Air 06/09/25 10:12 Vital Signs Temperature 99.3 F 06/09/25 10:12 Pulse Rate 90 06/09/25 10:12 Respiratory Rate 18 06/09/25 10:12 Blood Pressure 129/86 06/09/25 10:12 Pulse Oximetry 96 06/09/25 10:12 Oxygen Delivery Method Room Air 06/09/25 10:12 Temperature 98.8 F 06/09/25 13:32 Pulse Rate 70 06/09/25 13:29 Respiratory Rate 18 06/09/25 13:32 Blood Pressure 105/65 06/09/25 13:29 Pulse Oximetry 97 06/09/25 13:29 Oxygen Delivery Method Room Air 06/09/25 10:12 Medications Administered Medications: Discontinued Medications Generic Name Dose Route Start Last Admin Trade Name Suri PRN Reason Stop Dose Admin Sodium Chloride 1,000 mls @ 500 mls/hr 06/09/25 10:46 06/09/25 12:51 0.9 % Sodium Chloride 1000 Ml IV 06/09/25 12:45 Infused .Q2H GIANNA Infusion Ketorolac Tromethamine 15 mg 06/09/25 10:46 06/09/25 11:31 Ketorolac 15 Mg/Ml Inj IVP 06/09/25 10:47 15 mg ONCE ONE Administration Ondansetron HCl 4 mg 06/09/25 10:46 06/09/25 11:29 Ondansetron 2 Mg/Ml Inj IVP 06/09/25 10:47 4 mg ONCE ONE Administration Medical Decision Making Lab Data Lab results reviewed: Yes I reviewed the patient's lab results Labs: Lab Results 06/09/25 06/09/25 Range/Units 11:00 12:05 WBC 5.04 (4.50-11.00) K/uL RBC 4.59 (4.00-5.20) m/uL Hgb 13.2 (12.0-16.0) gm/dL Hct 38.7 (33.0-51.0) % MCV 84 (80-100) fL MCH 29 (26-34) pg MCHC 34 (32-36) gm/dL RDW Coeff of Gail 12.7 (11.5-15.5) % Plt Count 294 (140-440) K/uL Neut % (Auto) 57.1 (42.0-72.0) % Lymph % (Auto) 33.9 (20-44) % Aurora % (Auto) 5.0 (0.0-11.0) % Eos % (Auto) 3.2 (0.0-7.0) % Baso % (Auto) 0.8 (0.0-3.0) % Neut # (Auto) 2.88 (1.7-7.0) K/uL Lymph # (Auto) 1.71 (0.90-2.90) K/uL Aurora # (Auto) 0.30 (0.00-0.90) K/UL Eos # (Auto) 0.16 (0.00-0.50) K/uL Baso # (Auto) 0.04 (0.00-0.30) K/uL Abs Immat Gran (auto) 0.00 (0.00-0.30) K/uL Imm/Tot Granulo (auto) 0.0 % VBG pH 7.447 H (7.32-7.43) VBG pCO2 34 L (40-50) mmHG VBG pO2 113.0 H (25-47) mmHG VBG HCO3 23 (21-28) mmol/L Sodium 137 (135-149) mmol/L Potassium 4.1 (3.6-5.1) mmol/L Chloride 107 (96-114) mmol/L Carbon Dioxide 23 (20-32) mmol/L Anion Gap 7 (7-15) mEq/L BUN 9 (5-24) mg/dL Creatinine 0.7 (0.5-1.5) mg/dL Estimated GFR 113 ml/min Glucose 105 (60-115) mg/dL Lactate 1.4 (0.5-1.9) mmol/L Calcium 9.0 (8.4-10.6) mg/dL Total Bilirubin 0.4 (0.1-1.5) mg/dL AST 28 (12-35) U/L ALT 26 (4-35) U/L Alkaline Phosphatase 56 (40-150) U/L Troponin I < 0.01 (0.01-0.04) ng/mL C-Reactive Protein < 0.5 L (0.5-1.0) mg/dL NT-Pro-B Natriuret Pep 50 (See Note) pg/mL Total Protein 7.6 (6.0-8.3) g/dL Albumin 4.5 (3.3-5.0) g/dL TSH 2.790 (0.270-4.200) uIU/mL Urine Color Yellow (Yellow) Urine Appearance Clear (Clear) Urine pH 7.0 (5.0-8.5) Ur Specific Carnation 1.010 (1.000-1.030) Urine Protein Negative (Negative) Urine Glucose (UA) Negative (Negative) Urine Ketones Negative (Negative) Urine Blood Trace-lysed A (Negative) Urine Nitrite Negative (Negative) Urine Bilirubin Negative (Negative) Urine Urobilinogen 0.2 (0.2-1.0) Ur Leukocyte Esterase Negative (Negative) Urine RBC 0-2 (0-2) Urine WBC 0-2 (0-5) Ur Squamous Epith Cells Few (None-Few) Urine Bacteria None (None) Imaging Data CT scan - abdomen: Attestation: I have reviewed the pertinent imaging results. Radiologist's impression: Patient: NAVEEN CORTEZ Facility:?[facility] Patient ID:?[id number] Site Patient ID:?[id number] Site :?1985 Study:?CT-Abdomen/Pelvis W/ 92CC [id number]/22/2025 11:15:31 AM Ordering Physician:Ayah Argueta Final Report: INDICATION: Lower abdominal pain and diarrhea. TECHNIQUE: CT abdomen and pelvis acquired with 92 cc Omnipaque 350 IV contrast. COMPARISON: 01/30/2025. FINDINGS: Lung bases are clear. The liver is unremarkable. No biliary ductal dilatation. The gallbladder is partially distended. The spleen is unremarkable. The pancreas is unremarkable. Adrenal glands are normal. The kidneys are unremarkable. Urinary bladder is distended. Liquid stool within the rectum as evidence for diarrheal state. Mild rectal wall thickening is noted. This may represent colitis. The remainder of the colon is decompressed. Submucosal fat deposition is noted within the right colon which is likely chronic. The appendix is nondilated. The small bowel is unremarkable. There is thickening of the distal stomach, favored to be due to underdistention. No significant inflammatory fat stranding. No free air. No ascites. Laxity anterior abdominal wall. No lymphadenopathy. Aorta is not aneurysmal. Indeterminate masslike appearance of the left ovary measuring 3 centimeters (108). Bone windows demonstrate no suspicious lesion. IMPRESSION: 1. Mild rectal wall thickening. This may represent colitis. Recommend correlation with rectal pain. 2. Indeterminate thickening of the distal stomach. This is favored to be due to underdistention rather than inflammation. 3. Indeterminate masslike appearance of the left ovary. Recommend follow-up nonemergent pelvic ultrasound for further evaluation. Please note that all CT scans at this facility use dose modulation, iterative reconstruction, and/or weight-based dosing when appropriate to reduce radiation dose to as low as reasonably achievable. Dictated by Justino Salas MD @ 06/09/2025 11:28:54 AM (Electronic Signature) US pelvis: Attestation: I have reviewed the pertinent imaging results. Radiologist's impression: Patient: NAVEEN CORTEZ Facility:?[facility] Patient ID:?[id number] Site Patient ID:?[id number]. Site :?1985 Study:?US-Pelvis TRANSVAGINAL W/ DOPPLER-06/09/2025 12:46:20 PM Ordering Physician:Ayah Argueta Final Report: Indication: Abnormal left ovary on court. Pelvic cramping and pain. Technique: Transvaginal sonographic evaluation of the pelvis was performed. Grayscale imaging was provided as well as color Doppler and spectral Doppler. The stent was performed transvaginally to better evaluate the left adnexa and the endometrium. Comparison: A CT from earlier the same day. Findings: The uterus is normal in size measuring 9.6 x 4.5 x 5.4 centimeters. The endometrium is focally thickened towards the fundus. There is what is likely a mass, probably a polyp in this area measuring 10 x 9 x 7 millimeters. There is also a heterogeneous junctional zone regarding the endometrium more diffusely which may be due to adenomyosis. Further follow-up evaluation directly is advised regarding the endometrial abnormality. The ovaries are normal in size. The right ovary measures 3.1 x 1.7 x 3.0 centimeters and the left ovary measures 2.9 x 2.7 x 2.8 centimeters. The ovaries are normal by ultrasound. Doppler is also normal. Mildly prominent vascularity noted in the adnexa felt to be within normal limits. No significant free fluid in the cul-de-sac. Impression: 1. Focal endometrial thickening, masslike, towards the fundus measuring 1 centimeter in greatest dimension. This is probably a polyp though other neoplastic etiologies are possible. Follow-up direct evaluation of the endometrium is recommended at a clinically appropriate time. 2. More diffusely there are findings of an abnormal endometrial junctional zone. This pattern can be seen in uterine adenomyosis. 3. The ovaries and adnexa show no significant abnormality. The ovaries are normal in size. No focal mass. Normal Doppler. No evidence of torsion. 4. Mildly prominent adnexal vascularity, felt to be within normal limits Dictated by Hector Bell MD @ 06/09/2025 1:01:25 PM (Electronic Signature) Discharge Plan Discharge Clinical Impression: Abnormal pelvic ultrasound, Acute diarrhea Patient Disposition: Home, Self-Care Condition: Stable Instructions: Colitis (ED), Endometrial Polyps (DC) Additional Instructions: [facility] with an 8:30am appointment time. Please arrive at 8:15am to complete paperwork. If you have any questions, please call [phone]. For the abnormal uterine findings on ultrasound, please keep the [facility] appointment. I do not recommend waiting until August for a follow-up appointment. You alternatively can try to call your primary clinic with this updated ultrasound and see if there is any availability to move follow-up with OB Gyne up. The abdominal cramping could be coming from pelvic issues or the colitis that was potentially seen on CT scanning. Have written for some Toradol as this did seem to help you, follow-up prescription instructions. Can also use Tylenol 1000 mg 3 times a day. If your diarrhea is worsening, develops fever or worsening abdominal pain, have blood in the diarrhea, do recommend re-evaluation in the ER. Can try bland diet but do need to push fluids to stay hydrated. Activity Level: No Restrictions Prescriptions: No Action No Known Home Medications Follow Up/Referrals: Diana Rodgers DO [Primary Care Provider, Family Practice] Stand Alone [facility] Procedures ABG Interpretation ABG Results: 06/09/25 11:00 VBG pH 7.447 H VBG pCO2 34 L VBG pO2 113.0 H VBG HCO3 23
[2025-06-09 10:42] VITALS: O2SAT 97
--- NOTE | 2025-06-09 10:43 | CRLHL7_ITS ---
For Patients: As a result of the Century Cures Act, medical imaging exams and procedure reports are released immediately into your electronic medical record. You may view this report before your referring provider. If you have questions, please contact your health care provider. INDICATION: Lower abdominal pain and diarrhea. TECHNIQUE: CT abdomen and pelvis acquired with 92 cc Omnipaque 350 IV contrast. COMPARISON: 01/30/2025. FINDINGS: Lung bases are clear. The liver is unremarkable. No biliary ductal dilatation. The gallbladder is partially distended. The spleen is unremarkable. The pancreas is unremarkable. Adrenal glands are normal. The kidneys are unremarkable. Urinary bladder is distended. Liquid stool within the rectum as evidence for diarrheal state. Mild rectal wall thickening is noted. This may represent colitis. The remainder of the colon is decompressed. Submucosal fat deposition is noted within the right colon which is likely chronic. The appendix is nondilated. The small bowel is unremarkable. There is thickening of the distal stomach, favored to be due to underdistention. No significant inflammatory fat stranding. No free air. No ascites. Laxity anterior abdominal wall. No lymphadenopathy. Aorta is not aneurysmal. Indeterminate masslike appearance of the left ovary measuring 3 centimeters (108). Bone windows demonstrate no suspicious lesion. IMPRESSION: 1. Mild rectal wall thickening. This may represent colitis. Recommend correlation with rectal pain. 2. Indeterminate thickening of the distal stomach. This is favored to be due to underdistention rather than inflammation. 3. Indeterminate masslike appearance of the left ovary. Recommend follow-up nonemergent pelvic ultrasound for further evaluation. Please note that all CT scans at this facility use dose modulation, iterative reconstruction, and/or weight-based dosing when appropriate to reduce radiation dose to as low as reasonably achievable. Dictated by Justino Salas MD @ 06/09/2025 11:28:54 AM (Electronically Signed)
[2025-06-09 11:07] LABS: HCO3 VBG 23 mmol/L (21-28); Lactate* 1.4 mmol/L (0.5-1.9); PCO2 VBG 34 mmHG (40-50); PO2 VBG 113.0 mmHG (25-47); pH VBG 7.447 (7.32-7.43)
[2025-06-09 11:18] LABS: Hematocrit 38.7 % (33.0-51.0); Hemoglobin* 13.2 gm/dL (12.0-16.0); Immature Granulocytes Abs Auto 0.00 K/uL (0.00-0.30); Immature Granulocytes Pct Auto 0.0 %; Lymphocytes Absolute Auto 1.71 K/uL (0.90-2.90); Mean Corpuscular HGB Conc 34 gm/dL (32-36); Mean Corpuscular Hemoglobin 29 pg (26-34); Mean Corpuscular Volume 84 fL (80-100); RDW Coefficient of Variation % 12.7 % (11.5-15.5); Red Blood Count 4.59 m/uL (4.00-5.20); White Blood Count* 5.04 K/uL (4.50-11.00)
[2025-06-09 11:20] LABS: Slide Review Reflex No
[2025-06-09] MEDS: ONDANSETRON 2 MG/ML inj 4 MG IVP (11:29)
[2025-06-09 11:30] LABS: Albumin* 4.5 g/dL (3.3-5.0); Chloride* 107 mmol/L (96-114); Potassium* 4.1 mmol/L (3.6-5.1); Sodium* 137 mmol/L (135-149)
[2025-06-09 11:32] LABS: Blood Urea Nitrogen* 9 mg/dL (5-24); Creatinine* 0.7 mg/dL (0.5-1.5); Estimated Glomerular Filt Rate 113 ml/min
[2025-06-09 11:33] LABS: Alanine Aminotransferase* 26 U/L (4-35); Alkaline Phosphatase* 56 U/L (40-150); Anion Gap 7 mEq/L (7-15); Aspartate Amino Transferase* 28 U/L (12-35); Bilirubin Total* 0.4 mg/dL (0.1-1.5); Calcium* 9.0 mg/dL (8.4-10.6); Carbon Dioxide* 23 mmol/L (20-32); Glucose* 105 mg/dL (60-115); Total Protein* 7.6 g/dL (6.0-8.3)
[2025-06-09 11:47] LABS: NT Pro B Type NatriureticPept* 50 pg/mL (See Note)
[2025-06-09 12:04] LABS: TSH With Reflex to FT4* 2.790 uIU/mL (0.270-4.200)
--- NOTE | 2025-06-09 12:11 | CRLHL7_ITS ---
For Patients: As a result of the Century Cures Act, medical imaging exams and procedure reports are released immediately into your electronic medical record. You may view this report before your referring provider. If you have questions, please contact your health care provider. Indication: Abnormal left ovary on court. Pelvic cramping and pain. Technique: Transvaginal sonographic evaluation of the pelvis was performed. Grayscale imaging was provided as well as color Doppler and spectral Doppler. The stent was performed transvaginally to better evaluate the left adnexa and the endometrium. Comparison: A CT from earlier the same day. Findings: The uterus is normal in size measuring 9.6 x 4.5 x 5.4 centimeters. The endometrium is focally thickened towards the fundus. There is what is likely a mass, probably a polyp in this area measuring 10 x 9 x 7 millimeters. There is also a heterogeneous junctional zone regarding the endometrium more diffusely which may be due to adenomyosis. Further follow-up evaluation directly is advised regarding the endometrial abnormality. The ovaries are normal in size. The right ovary measures 3.1 x 1.7 x 3.0 centimeters and the left ovary measures 2.9 x 2.7 x 2.8 centimeters. The ovaries are normal by ultrasound. Doppler is also normal. Mildly prominent vascularity noted in the adnexa felt to be within normal limits. No significant free fluid in the cul-de-sac. Impression: 1. Focal endometrial thickening, masslike, towards the fundus measuring 1 centimeter in greatest dimension. This is probably a polyp though other neoplastic etiologies are possible. Follow-up direct evaluation of the endometrium is recommended at a clinically appropriate time. 2. More diffusely there are findings of an abnormal endometrial junctional zone. This pattern can be seen in uterine adenomyosis. 3. The ovaries and adnexa show no significant abnormality. The ovaries are normal in size. No focal mass. Normal Doppler. No evidence of torsion. 4. Mildly prominent adnexal vascularity, felt to be within normal limits Dictated by Hector Bell MD @ 06/09/2025 1:01:25 PM (Electronically Signed)
[2025-06-09 12:16] LABS: Appearance Urine Clear (Clear)
[2025-06-09 13:29] VITALS: BP 105/65; PULSE 70; O2SAT 97
[2025-06-09 13:32] VITALS: RESP 18; TEMP 37.1
[2025-06-09 14:07] LABS: Bacterial Vaginosis* Negative (Negative); Candida glab/krus NOT DETECTED (No Detected)
== END 2025-06-09 14:03 | disposition home or self-care (01) ==
PROVIDERS: Emergency Provider Family Medicine; PCP Family Medicine
DX: R19.7 Diarrhea, unspecified (principal); R93.89 Abnormal findings on diagnostic imaging of other specified body structures
CPT/HCPCS: 36415; 74177; 76830; 80053; 81001; 81513; 82803; 83605; 83880; 84443; 84484; 85025; 86140; 87481; 87661; 93005; 93976; 94761; 96374; 96375; 99284; 99285; J1885; J2405; J7030; Q9967

== ENCOUNTER 2025-06-23 07:15 | Day surgery (SDC) | payer BC, SELFPAY ==
[2025-06-23] MEDS: LACTATED RINGERS 1000 ML 1,000 ML 100 ML IV (07:20)
[2025-06-23 07:32] LABS: Ur HCG Qualitative* Negative (Negative)
[2025-06-23 07:36] VITALS: BP 129/84; PULSE 75; RESP 16; TEMP 36.6; O2SAT 96; BMI 33.2
[2025-06-23] MEDS: SODIUM CHLORIDE 0.9 % (FLUSH) 10 ML SYRINGE IVF (07:40)
[2025-06-23 07:41] LABS: Hemoglobin* 12.8 gm/dL (12.0-16.0)
--- NOTE | 2025-06-23 08:02 | W.PM.H&PU ---
History & Physical Update History & Physical Update H&P Reviewed and patient assessed: No changes noted H&P Updates: No interval changes to her history. Declined Mirena IUD insertion at time of procedure. She reports she would prefer to a pill instead. Will no place Mirena IUD at time of procedure today. Will discuss other management options at postop visit.
[2025-06-23] MEDS: LIDOCAINE 1%-EPI 1:100,000 20 ML INFILTRATI ×2 (08:19)
[2025-06-23 08:37] VITALS: BP 97/64; PULSE 71; RESP 16; TEMP 36.6; O2SAT 96
--- NOTE | 2025-06-23 08:39 | P.ANES_ITS ---
Anesthesia Charges Start Date/Time Anesthesia Start Date: 06/23/25 Anesthesia Start Time: 07:59 Stop Date/Time Anesthesia Stop Date: 06/23/25 Anesthesia Stop Time: 08:40 Coding CPT Codes CPT Codes: ANESTH HYSTEROSCOPE/GRAPH - 95855 ([id number]) P2 - PATIENT W/MILD SYST DISEASE, QK - DRUG SAFETY ASSOCIATE 2-4 CNCRNT ANES PROC, QX - CORE CUTTER AND REAMER SVC W/ MD MED DIRECTION
--- NOTE | 2025-06-23 08:39 | W.ANESCHARGE ---
Anesthesia Charges Start Date/Time Anesthesia Start Date: 06/23/25 Anesthesia Start Time: 07:59 Stop Date/Time Anesthesia Stop Date: 06/23/25 Anesthesia Stop Time: 08:40 Coding CPT Codes CPT Codes: ANESTH HYSTEROSCOPE/GRAPH - 23007 ([id number]) P2 - PATIENT W/MILD SYST DISEASE, QK - PLACEMENT MANAGER 2-4 CNCRNT ANES PROC, QX - COOKING TEACHER SVC W/ MD MED DIRECTION
[2025-06-23 08:45] VITALS: BP 95/61; PULSE 66; RESP 16; O2SAT 97
--- NOTE | 2025-06-23 08:48 | P.GYNPRC_ITS ---
Procedure Note Time Seen by Provider: 07:00 Date of procedure: 06/23/25 Will [facility] bill your pro fee for this procedure?: Yes Post-op diagnosis: 1. Abnormal uterine bleeding, possible endometrial polyps 2. Dysmenorrhea 3. Chronic pelvic pain Procedure: 1. Abnormal uterine bleeding, endometrial polyps 2. Dysmenorrhea 3. Chronic pelvic pain Anesthesia: MAC and local Complications: None Surgeon: Emma Desai MD Estimated blood loss (mL): 0 IV fluids (mL): 650 Urine Output (mL): 20 Pathology: specimen obtained, sent to pathology (Endometrial curettings/polyps) Condition: stable Disposition: PACU Procedure Description: Findings: Exam under anesthesia: Cervix palpates normal. Uterus: Anteverted position, 7 week size, mobile, without nodularity/masses palpable. Adnexa were without fullness or nodularity. On hysteroscopy: Polyps noted on right uterine sidewall. Normal fluffy endometrium. Normal bilateral tubal ostia. Procedure: Brittany was taken to the operating where conscious sedation was found to be adequate. She was placed in the dorsal lithotomy position. An exam under anesthesia was performed with findings stated above. She was then prepped and draped in normal sterile manner. A bivalve metal speculum was placed in the vaginal canal. The cervix and vaginal canal appear normal. A paracervical block was placed using 1% lidocaine with epinephrine: 5 mL injected at the 4 and 8 o'clock positions on the cervix. The anterior lip of the cervix was then grasped with a long Allis. The cervix was dilated to Hegar 6. The uterus sounded to 9 cm. The hysteroscope advanced into the uterus and a diagnostic hysteroscopy was performed with findings stated above. Normal saline was used as the insufflation medium. Soft tissue shaver was used to perform polypectomy and global curetting. The uterus and documented a normal appearing uterine cavity at the end of the procedure. Fluid deficit at the end of the procedure 40mL. Total fluid: 615 cc The hysteroscope and Allis clamp were removed from the uterus and cervix. Excellent hemostasis noted. Nothing was used for hemostasis. The patient tolerated the procedure well. Sponge, lap and instruments counts were correct at the end of the procedure. The patient was awakened from anesthesia and taken to the recovery area in stable condition. Surgical debrief performed and specimen reviewed at the end of the procedure.
[2025-06-23 09:00] VITALS: BP 92/75; PULSE 60; RESP 16; O2SAT 98
--- NOTE | 2025-06-23 09:06 | P.ANES_ITS ---
Anesthesia Charges Start Date/Time Anesthesia Start Date: 06/23/25 Anesthesia Start Time: 07:59 Stop Date/Time Anesthesia Stop Date: 06/23/25 Anesthesia Stop Time: 08:40 Coding CPT Codes CPT Codes: ANESTH HYSTEROSCOPE/GRAPH - 36899 ([id number]) P2 - PATIENT W/MILD SYST DISEASE, QK - PATCHER WOOD WELDER 2-4 CNCRNT ANES PROC, QX - COPY SUPERVISOR SVC W/ MD MED DIRECTION
--- NOTE | 2025-06-23 09:06 | W.ANESCHARGE ---
Anesthesia Charges Start Date/Time Anesthesia Start Date: 06/23/25 Anesthesia Start Time: 07:59 Stop Date/Time Anesthesia Stop Date: 06/23/25 Anesthesia Stop Time: 08:40 Coding CPT Codes CPT Codes: ANESTH HYSTEROSCOPE/GRAPH - 11427 ([id number]) P2 - PATIENT W/MILD SYST DISEASE, QK - RESPIRATORY CARE PROGRAM DIRECTOR 2-4 CNCRNT ANES PROC, QX - POLYSOMNOGRAPHER SVC W/ MD MED DIRECTION
[2025-06-23 09:15] VITALS: BP 105/67; PULSE 64; RESP 16; O2SAT 100
[2025-06-23 09:30] VITALS: BP 101/60; PULSE 60; RESP 16; O2SAT 100
== END 2025-06-23 09:52 | disposition home or self-care (01) ==
LOC: OR 07:16
PROVIDERS: Anesthesiology; PCP Family Medicine; Visit Provider Obstetrics & Gynecology
PROC: 0UDB8ZZ Extraction of Endometrium, Via Natural or Artificial Opening Endoscopic (ICD-10-PCS; CPT 58558; principal; 2025-06-23 08:30)
DX: N93.8 Other specified abnormal uterine and vaginal bleeding (principal); N94.6 Dysmenorrhea, unspecified; G89.29 Other chronic pain; R10.2 Pelvic and perineal pain; N84.0 Polyp of corpus uteri
CPT/HCPCS: 58558; 00952; 36415; 81025; 85018; 86850; 86900; 86901; 88305; C1782; J1100; J1885; J2250; J2405; J2704; J3010; J3490; J7120

== ENCOUNTER 2025-07-16 11:27 | Outpatient (CLI) | payer BC, SELFPAY | END 2025-07-16 11:28 | disposition home or self-care (01) | PROVIDERS: PCP Family Medicine; Visit Provider Obstetrics & Gynecology | DX: N92.0 Excessive and frequent menstruation with regular cycle (principal); N95.1 Menopausal and female climacteric states | CPT/HCPCS: 82670; 83001; 83002; 83498; 84146 ==